=== PATIENT | female | born 1960 ===

== ENCOUNTER 2025-04-17 09:43 | Inpatient (IN) | payer OTHER, SELFPAY ==
--- NOTE | 2025-04-17 | ECG_ITS ---
Test Reason : chest tigtness Blood Pressure : */* mmHG Vent. Rate : 71 BPM Atrial Rate : 71 BPM P-R Int : 160 ms QRS Dur : 68 ms QT Int : 424 ms P-R-T Axes : 39 46 43 degrees QTcB Int : 460 ms Normal sinus rhythm Normal ECG No previous ECGs available Referred By: Generic ED Physician Electronically Signed By: LÁZARO BALDWIN MD
--- NOTE | ~2025-04-17 | CT_ITS ---
EXAMINATION: CT HEAD WITHOUT IV CONTRAST STROKE HISTORY: HTN, L sided facial numbness. TECHNIQUE: Unenhanced helical CT of the head was performed per standard departmental protocol. Coronal and sagittal reformats of the head were also evaluated. One or more of the following techniques was used for dose reduction: Automated exposure control, adjustment of the mA and/or kV according to patient size, use of iterative reconstruction technique. DLP: 641 mGy-cm COMPARISON: There are no prior studies available for comparison. FINDINGS: BRAIN: The brain parenchyma is unremarkable. There is normal simms/white differentiation. The ventricular system is normal in size and configuration. There is no mass effect or midline shift. No intra- or extra-axial fluid collections are identified. SINUSES: The visualized paranasal sinuses are clear. The mastoid air cells and middle ear cavities are well pneumatized. ORBITS: The visualized orbits are unremarkable. BONES/SOFT TISSUES: The extracranial soft tissues are unremarkable. The calvarium is intact. No suspicious lytic or sclerotic lesions. CT/CT head for STROKE IMPRESSION: Unremarkable unenhanced head CT. Findings were discussed with Dr. Zamarripa in the emergency room on 04/17/2025 at 10:20 AM. Electronically signed by: Edmund Meadows MD 04/17/2025 10:20 AM EDT
--- NOTE | ~2025-04-17 | MR_ITS ---
EXAMINATION: MR BRAIN WITHOUT CONTRAST CLINICAL INFORMATION: Left-sided facial numbness, TIA versus CVA. COMPARISON: No prior MRI. Head CT dated earlier same day. TECHNIQUE: MRI of the brain was obtained using routine sequences without contrast. Examination performed on a 1.5 Daysi Siemens high-field unit. FINDINGS: There is no diffusion restriction. There is no intracranial hemorrhage, acute infarction, mass effect, or edema. Ventricles, sulci, and cisterns are normal in size and configuration for patient age. No shift of midline. No abnormal hemosiderin deposition is identified. There are scattered punctate and minimally confluent foci of white matter T2 hyperintensity in the periventricular, subcortical, and hemispheric deep white matter. These foci are nonspecific but statistically most likely relate to mild small vessel ischemic changes. Midline structures appear normally formed. There is a partial empty sella. Posterior fossa structures appear normal. Cerebellar tonsils are appropriately located. Major flow voids are preserved within the skull base. The globes and orbital contents demonstrate no abnormalities. There is no significant paranasal sinus disease. The mastoids and tympanic cavities are normally aerated. Extracranial soft tissues demonstrate no abnormalities. No suspicious bone marrow changes are evident. Mild to moderate degenerative changes noted in the left TM joint. Atlantoaxial joint is normal. MR/MR head/brain wo con IMPRESSION: 1. No evidence of intracranial hemorrhage, acute infarction, mass effect, or edema. 2. Mild scattered T2 hyperintense white matter foci, statistically most likely relating to small vessel ischemic changes. Although not entirely excluded, no distribution or morphology suggestive of demyelinating disease. Electronically signed by: Micah Calvert MD 04/17/2025 03:46 PM EDT
--- NOTE | ~2025-04-17 | FL_ITS ---
EXAMINATION: XR LUMBAR PUNCTURE CLINICAL INFORMATION: left facial numbness COMPARISON: None. TECHNIQUE: Following explaining fluoroscopy-guided lumbar puncture procedure, benefits and risk, a written consent was obtained. Patient was placed prone on fluoroscopy table and an optimal site was selected along the skin at the L4-5 disc level and markers placed. The marked area was cleaned and draped in usual sterile manner with 2% chlorhexidine solution. A 20-gauge spinal needle was inserted from the marked site intrathecally at the L4-5 disc level. After removing the stylet and observing CSF return, CSF was collected in 4 test tubes. Postprocedure stylet was reintroduced and needle removed. Complete hemostasis achieved at puncture site. Simple Band-Aid applied postprocedure. Patient tolerated procedure extremely well. FINDINGS: On single lateral image there is a loss of L5-S1 disc height. The L4-5 disc height and the L4-L5 vertebral heights are maintained normal. Approximately 12.5 mL of clear CSF fluid was collected in 4 test tubes and sent to lab. The CSF appears clear. FLUOROSCOPY TIME: 31 seconds DOSE AREA PRODUCT: 740.2 uGy-m2 (microgray-meter squared) FL/FL guided lumbar puncture LP IMPRESSION: Successful fluoroscopy-guided lumbar puncture performed at L4-5 disc level. Electronically signed by: Jayden Collins MD 04/18/2025 01:34 PM EDT
[2025-04-17 09:50] VITALS: BP 185/94; PULSE 75; RESP 18; TEMP 37; O2SAT 100; BMI 21.2
--- NOTE | 2025-04-17 09:56 | PC.NURSE ---
MD Zamarripa made aware of pt and symtptoms, at this time pt requested to be brougth back for exam and to determine further care
--- NOTE | 2025-04-17 10:16 | ED.NEUROSD ---
HPI - Neuro Symptoms/Deficit General Chief Complaint: Neuro Symptoms/Deficit Stated Complaint: Chest tightness, facial tingling, high/low bp Time Seen by Provider: 04/17/25 09:55 Source: patient and old records reviewed Mode of arrival: ambulatory Limitations: no limitations History of Present Illness ED Provider: JOON HPI Narrative: 65 yo female with PMH of HTN just started on new BP medication two days ago lisinopril 2.5mg, HLD, not on thinners or aspirin who notes around 730am she was driving to work and felt her L face was heavy and tingling. She also had a R sided headache. Initially her BP was low in the 90s then it went up to 180s. She notes she still has a funny feeling on the L side of the face. She has no weakness and never saw a facial droop. She has no hx of stroke Onset (ago): hour(s) (730am today) Last Observed Normal: 07:30 Location: left face History of same: No Severity: mild Quality: tingling Relieving factors: none Exacerbating factors: none Context: sudden onset On Anticoagulants: No Associated symptoms: headaches Treatments Prior to Arrival: none Related Data Allergies Allergy/AdvReac Type Severity Reaction Status Date / Time iodine AdvReac Itching Verified 04/17/25 09:51 latex AdvReac Itching Verified 04/17/25 09:51 IV dye Allergy Mild Hives Uncoded 04/17/25 10:05 Review of Systems Review of Systems: Constitutional : No Fever, No Chills, No Fatigue Cardiovascular : No Chest Pain, No SOB, No Dyspnea on Exertion Respiratory : No Cough, No Sputum Gastrointestinal : No Nausea, No Vomiting, No Diarrhea, No abdominal Pain Genitourinary : No Dysuria, No Urinary Frequency, No Hematuria, Musculoskeletal : No joint pain, No Myalgias, No Joint Swelling Skin : No Skin Lesions, No rash Neuro : No Weakness, pos Numbness, No Dizziness, positive Headache All other systems reviewed and are negative [facility] Past Medical History Attestation statement: The following information was validated with the patient. Source: old records reviewed Medical History (Updated 04/17/25 @ 11:00 by Roselia Zamarripa DO) HLD (hyperlipidemia) HTN (hypertension) Social History Social History (Updated 04/17/25 @ 10:22 by Roselia Zamarripa DO) Patient Tobacco Use Status: Never used Tobacco Advance Directives: No Advance Directives Information Provided: Yes Physical Exam Vital Signs: Vital Signs: Last Vital Signs Temp 98.6 F 04/17/25 09:50 Pulse 75 04/17/25 09:50 Resp 18 04/17/25 09:50 BP 185/94 H 04/17/25 09:50 Pulse Ox 100 04/17/25 09:50 O2 Del Method Room Air 04/17/25 09:50 BMI result Body Mass Index 21.2 Appearance: Alert. Oriented X3. No acute distress. Eyes: Pupils equal, round and reactive to light. ENT: Pharynx normal. Neck: Normal inspection. Neck supple. CVS: Normal heart rate and rhythm. Pulses normal. Respiratory: No respiratory distress. Breath sounds normal. Abdomen: Soft and nontender. Skin: Skin warm and dry. Normal skin color. Normal skin turgor. Extremities: No lower extremity edema. No calf ttp Neuro: Oriented X 3. No motor deficit. No sensory deficit. CN2-12 intact Medications Administered Discontinued Medications Generic Name Dose Route Start Last Admin Trade Name Freq PRN Reason Stop Dose Admin Aspirin 81 mg 04/17/25 10:50 04/17/25 11:42 Aspirin 81 Mg Tab.Chew PO 04/17/25 10:51 81 mg ONCE ONE Administration Medical Decision Making Medical Decision Making [facility] Narrative: 65 yo female with PMH of HTN just started on new BP medication two days ago lisinopril 2.5mg, HLD, not on thinners or aspirin here with isolated L sided facial tingling though she can feel my hand to light touch at this time I am going to obtain labs, EKG, CT head for stroke. She has prior allergy to IV dye so CTA held though clinically very low susp for LVO. Given mild symptoms and non debilitating NIH she is not a candidate for TNK. Differential Diagnosis Differential Diagnoses: The differential diagnosis associated with the presentation includes TIA, stroke, HTN urgency Admission/Observation Consideration of admission/observation: Escalation of care including admission/observation considered given symptoms and risk factors would admit for further workup Consult Healthcare Provider Management of the patient was discussed with: Hospitalist (will admit) Lab Data [facility] Lab Attestation statement: I reviewed the patient's lab results. 04/17/25 10:17 04/17/25 10:17 Labs: Lab Results 04/17/25 Range/Units 10:17 WBC 4.4 L (4.8-10.8) X10*3/uL RBC 4.08 L (4.20-5.50) X10*6/uL Hgb 12.4 (12.0-16.0) g/dl Hct 35.9 L (37.0-47.0) % MCV 88.0 (80.0-98.0) fL MCH 30.4 (27.0-33.0) pg MCHC 34.5 (31.0-35.0) g/dl RDW 11.3 (11.0-16.0) % Plt Count 218 (160-400) X10*3/uL MPV 10.2 (9.4-12.3) fL Immature Gran % (Auto) 0.5 H (0.0-0.4) % Neut % (Auto) 68.3 (45-73) % Lymph % (Auto) 20.4 (20-40) % Glades % (Auto) 7.6 (2-11) % Eos % (Auto) 2.1 (0-4) % Baso % (Auto) 1.1 (0-2) % Lymph # (Auto) 0.9 L (1.2-4.9) X10*3/uL [place] # (Auto) 0.3 (0.1-1.2) X10*3/uL Eos # (Auto) 0.1 (0.0-0.4) X10*3/uL Baso # (Auto) 0.1 (0.0-0.2) X10*3/uL Abs Immat Gran (auto) 0.02 (0.00-0.03) X10*3/uL Absolute Neuts (auto) 3.0 (2.0-8.3) x10*3/uL Absolute Nucleated RBC 0.000 (0.0-0.012) X10*3/uL Nucleated RBC % (auto) 0.0 (0.0-0.2) /100WBC Sodium 140 (135-145) mmol/L Potassium 4.0 (3.3-5.1) mmol/L Chloride 110 H (96-108) mmol/L Carbon Dioxide 24 (22-29) mmol/L Anion Gap 10 L (12-20) BUN 19 H (9-16) mg/dL Creatinine 0.85 (0.5-1.4) mg/dL Estim Creat Clear Calc 63.4 Estimated GFR > 60 Random Glucose 95 (60-115) mg/dL Estimat Average Glucose 103 mg/dL Hemoglobin A1c % 5.2 (<6.0) % Calcium 8.9 (8.4-10.2) mg/dL Magnesium 2.3 (1.6-2.6) mg/dL Total Bilirubin 0.3 (0.0-1.0) mg/dL Direct Bilirubin 0.1 (0.0-0.5) mg/dL AST 32 H (5-31) U/L ALT 18 (0-31) U/L Alkaline Phosphatase 79 (39-117) U/L Troponin I High Sens < 2.7 (<3.5-17.0) ng/L Total Protein 7.4 (6.5-8.0) g/dL Albumin 4.7 (3.5-5.0) g/dL Triglycerides 214 H (<150) mg/dL Cholesterol 350 H (<200) mg/dL LDL Cholesterol, Calc 252 H (<100) mg/dL HDL Cholesterol 56 (>40) mg/dL Lipase 42 (8-78) U/L Independent Interpretation I performed an independent interpretation of an: EKG and CT Scan (negative) Interpretation: Rate: 71 Rhythm: NSR Clover: normal Normal P waves. Normal JADON. Normal QRS complex. ST T wave : inverted t wave V1, no MIGUEL qTC: 460 prior studies: no acute ischemia The study has been interpreted contemporaneously by me. . Radiology Impression Discussion of test interpretation with radiology: I discussed test interpretation with the radiologist and I have reviewed the radiologist's reading. NIH Stroke Scale Internal: Initial- Upon Arrival Level of Consciousness: Alert Level of Consciousness Questions: Answers both questions correctly Level of Consciousness Commands: Performs both tasks correctly Best Gaze: Normal Visual: No visual loss Facial Palsy: Normal Motor Arm (Right): No drift Motor Arm (Left): No drift Motor Leg (Right): No drift Motor Leg (Left): No drift Limb Ataxia: Absent Sensory: Mild to moderate sensory loss Best Language: No aphasia Dysarthia: Normal Extinction and Inattention: No abnormality Score: 1 Discharge Plan Discharge Clinical Impression: Paresthesia HTN (hypertension) Qualifiers: Hypertension type: unspecified Qualified Code(s): I10 - Essential (primary) hypertension Patient Disposition: Admitted As Inpatient
[2025-04-17 10:23] LABS: MANUAL DIFF FLAG NO
[2025-04-17 10:24] LABS: Hematocrit 35.9 % (37.0-47.0); Hemoglobin 12.4 g/dl (12.0-16.0); Imm Gran Abs Auto 0.02 X10*3/uL (0.00-0.03); Imm Gran Pct Auto 0.5 % (0.0-0.4); Lymphocytes Absolute Auto 0.9 X10*3/uL (1.2-4.9); Mean Corpuscular HGB Conc 34.5 g/dl (31.0-35.0); Mean Corpuscular Hemoglobin 30.4 pg (27.0-33.0); Mean Corpuscular Volume 88.0 fL (80.0-98.0); NRBC Abs Auto 0.000 X10*3/uL (0.0-0.012); NRBC Pct Auto 0.0 /100WBC (0.0-0.2); Platelet Count 218 X10*3/uL (160-400); Red Blood Count 4.08 X10*6/uL (4.20-5.50); White Blood Count 4.4 X10*3/uL (4.8-10.8)
[2025-04-17 10:40] LABS: Alanine Aminotransferase 18 U/L (0-31); Albumin Level 4.7 g/dL (3.5-5.0); Alkaline Phosphatase 79 U/L (39-117); Anion Gap 10 (12-20); Aspartate Amino Transferase 32 U/L (5-31); Blood Urea Nitrogen 19 mg/dL (9-16); Calcium 8.9 mg/dL (8.4-10.2); Carbon Dioxide 24 mmol/L (22-29); Chloride 110 mmol/L (96-108); Cholesterol 350 mg/dL (<200); Creatinine Clr Calc Pharmacy 63.4; Estimated Glomerular Filt Rate > 60; HDL Cholesterol 56 mg/dL (>40); Lipase 42 U/L (8-78); Magnesium 2.3 mg/dL (1.6-2.6); Potassium 4.0 mmol/L (3.3-5.1); Sodium 140 mmol/L (135-145); Total Protein 7.4 g/dL (6.5-8.0); Triglycerides 214 mg/dL (<150)
[2025-04-17 10:48] LABS: Troponin-I High Sensitivity < 2.7 ng/L (<3.5-17.0)
[2025-04-17 10:56] LABS: Hemoglobin A1C 108.8380 umol/L; Total Hemoglobin (HGBA1C) 3245.0049 umol/L
--- NOTE | 2025-04-17 11:49 | PC.NURSE ---
MRI form filled out by this RN and sent to clinical laboratory technologist at this time
[2025-04-17 12:11] VITALS: BP 152/100; PULSE 68; RESP 14; O2SAT 100
--- NOTE | 2025-04-17 12:36 | P.HPHOSP_ITS ---
History of Present Illness Date of Service: 04/17/25 Chief Complaint: left face numbness 65F PMH HTN, adhd presented with left facial numbness. Patient woke up on morning of admission without any symptoms. At about 07:30 she was driving and noticed left facial numbness most pronounced in V2 region associated with some facial weakness. denies other motor or sensory deficits. denies previous symptoms. in ED noted to be hypertensive - 185/94, CTH negative. Review of Systems 2 Review of Systems: Yes all other systems are reviewed and are negative [facility], [facility] Medical History HLD (hyperlipidemia) HTN (hypertension) Social History Patient Tobacco Use Status: Never used Tobacco Advance Directives: No Advance Directives Information Provided: Yes Meds Allergies Allergy/AdvReac Type Severity Reaction Status Date / Time iodine AdvReac Itching Verified 04/17/25 09:51 latex AdvReac Itching Verified 04/17/25 09:51 IV dye Allergy Mild Hives Uncoded 04/17/25 10:05 Active Medications: Current Medications Aspirin (Aspirin Enteric Coated 81 Mg Tablet.Dr) 81 mg PO DAILY SHALINI Atorvastatin Calcium (Atorvastatin Calcium 80 Mg Tablet) 80 mg PO BEDTIME SHALINI Clopidogrel Bisulfate (Clopidogrel Bisulfate 75 Mg Tablet) 75 mg PO DAILY SHALINI Enoxaparin Sodium (Enoxaparin Sodium 40 Mg/0.4 Ml Syringe) 40 mg SUBCUT Q24H SHALINI Physical Exam 2 Vital Signs and Narrative: Vital Signs: Last Vital Signs Temp 98.6 F 04/17/25 09:50 Pulse 68 04/17/25 12:11 Resp 14 04/17/25 12:11 BP 152/100 H 04/17/25 12:11 Pulse Ox 100 04/17/25 12:11 O2 Del Method Room Air 04/17/25 12:11 BMI result Body Mass Index 21.2 General: AO X 3, no acute distress Resp: CTA bilateral, no accessory muscles used CVS: S1,S2,RRR GI: soft, non tender, non distended Neuro: right tongue deviation, left facial numbness, alert Psych: appropriate affect, appropriate insight Results Labs 04/17/25 10:17 04/17/25 10:17 Labs: Laboratory Results - last 24 hr 04/17/25 10:17 MCV 88.0 MCH 30.4 MCHC 34.5 RDW 11.3 Plt Count 218 MPV 10.2 Immature Gran % (Auto) 0.5 H Neut % (Auto) 68.3 Lymph % (Auto) 20.4 [place]aines % (Auto) 7.6 Eos % (Auto) 2.1 Baso % (Auto) 1.1 Lymph # (Auto) 0.9 L [place] # (Auto) 0.3 Eos # (Auto) 0.1 Baso # (Auto) 0.1 Abs Immat Gran (auto) 0.02 Absolute Neuts (auto) 3.0 Absolute Nucleated RBC 0.000 Nucleated RBC % (auto) 0.0 Anion Gap 10 L Estim Creat Clear Calc 63.4 Estimated GFR > 60 Random Glucose 95 Estimat Average Glucose 103 Hemoglobin A1c % 5.2 Calcium 8.9 Magnesium 2.3 Total Bilirubin 0.3 Direct Bilirubin 0.1 AST 32 H ALT 18 Alkaline Phosphatase 79 Troponin I High Sens < 2.7 Total Protein 7.4 Albumin 4.7 Triglycerides 214 H Cholesterol 350 H LDL Cholesterol, Calc 252 H HDL Cholesterol 56 Lipase 42 Imaging Radiologist's Impressions: Impressions Head CT 04/17/25 10:05 IMPRESSION: Unremarkable unenhanced head CT. Findings were discussed with Dr. Zamarripa in the emergency room on 04/17/2025 at 10:20 AM. Electronically signed by: Edmund Meadows MD 04/17/2025 10:20 AM EDT RP Assessment and Plan (1) Paresthesia: Status: Acute Plan 65F PMH HTN, adhd presented with left facial numbness Left facial numbness Rule out TIA/CVA MRI brain, aspirin, Plavix, statin Neuro eval No evidence of dysphagia or speech abnormality, no need for PT OT Hyperlipidemia Statin Uncontrolled hypertension Permissive hypertension for now DVT prophylaxis with Lovenox Full code Given ongoing and progressing neuro deficits at high-risk due to hypertension and hyperlipidemia expected require 2 midnights inpatient for workup for possible stroke Quality Stroke Does the patient have a stroke diagnosis?: Yes Reason for No Anti-thrombotic by Day Two: N/A - Med Ordered VTE Prior VTE?: No VTE Risk Level:: Medical - moderate - high VTE Device Contraindication: Treatment Not Indicated VTE Drug Contraindication: N/A - Med Ordered
[2025-04-17 12:50] LABS: Appearance Urine Clear; Glucose Urine UA Negative (Negative); PH 8.5 (5.0-9.0); Specific Gravity - Urine <= 1.005 (1.005-1.025)
--- NOTE | 2025-04-17 13:23 | PHA.MEDREC ---
Addendum entered by Cesar Caruso [facility] 04/17/25 18:34: Reviewed by [facility] Addendum entered by Neida Schafer 04/17/25 18:23: Got list from [facility] and spoke with pt again to confirm Premarin Cream once a week; pt confirmed she takes it Sundays, Pt takes Strattera 18mg 1 BID; [facility] 2 caps AM and 1 cap PM, pt takes Methylphenidate 5mg tabs 1 TID; [facility] it [facility] 1 QID, pt confirmed her Estradiol Patch and she switches [employer]; pt took patch off today and pt takes Vitamin D3 1000un tab once daily that she gets OTC; not indicated [facility]. Addendum entered by Paola Still 04/17/25 15:01: Spoke to Patient again to confirm Strattara. Patient reports Strattara is 18 mg. Patient states she fills lisinopril and Starttra from [facility]. Waiting on list from [facility] to confirm Will have nite time med rec team follow up. Original Note: Pharmacy Consult ? Medication Reconciliation Pharmacy has completed the medication reconciliation.Spoke to patient to confirm med list. Patient states she takes Lisinopril 2.5 mg and Strarrera 16 mg from [facility] [phone] however [facility] has no history of patient filling these medications. [facility] could only confirm Estradiol 0.05mg twice a week (patient changes Sundays and Wednesdays) and Progesterone 100 mg. didn't add Strattera because it doesn't com in 16 mg. Will notify the provider.
--- NOTE | 2025-04-17 14:14 | MHC.STROKE ---
Notified of patient in ED Patient awake, alert and oriented x 4. Reports at approx 0730 a heaviness or tingling to left side of face. Reporting that her tongue doesn't feel normal . Pt states that for the past month her blood pressure has been elevated and she was started on lisinopril approx 2 days ago. No focal deficits/weakness noted. NIH 1 per provider documentation Stroke Education reviewed with patient. Pamphlet provided All questions answered. Patient Medical history reviewed along with medications, social history, diet, and activity. Pt denies smoking, etoh. Plan is for admission and MRI. MRI form completed and faxed. Pt aware of plan - no questions at this time
--- NOTE | 2025-04-17 16:28 | PM.NEUROCN ---
History of Present Illness Data of Consult Service Date: 04/17/25 Primary Care Provider: Unknown Physician HPI Reason for consult: Left facial numbness and right facial weakness This is a 65-year-old right-handed woman with a history of hypertension that has been untreated until 3 days ago when she started lisinopril. She was driving to work earlier today and noted some left-sided numbness in the cheek area which then spread to both side of the upper lip and then she started noticing that her face was twisted to 1 side with some right-sided facial weakness. Her initial blood pressure was low and then little later it was in the 180s and so she decided to come in to the emergency room. Initial blood pressure was elevated. She has had an negative CAT scan and MRI that shows fairly extensive nonspecific white matter hyperintense lesions both subcortical and deep white matter in both hemispheres but not involving the brainstem. No evidence of acute infarct. [facility] Past Medical History Medical History HLD (hyperlipidemia) HTN (hypertension) Social History Social History Patient Tobacco Use Status: Never used Tobacco Advance Directives: No Advance Directives Information Provided: Yes Meds Allergies Allergy/AdvReac Type Severity Reaction Status Date / Time iodine AdvReac Itching Verified 04/17/25 09:51 latex AdvReac Itching Verified 04/17/25 09:51 IV dye Allergy Mild Hives Uncoded 04/17/25 10:05 Active Medications: Current Medications Acetaminophen (Acetaminophen 325 Mg Tablet) 650 mg PO Q6H PRN PRN Reason: Pain, Mild 1-3,fever,headache Aspirin (Aspirin Enteric Coated 81 Mg Tablet.Dr) 81 mg PO DAILY SHALINI Atorvastatin Calcium (Atorvastatin Calcium 80 Mg Tablet) 80 mg PO BEDTIME SHALINI Calcium Carbonate (Calcium Carbonate 750 Mg Tab.Chew) 750 mg PO Q4H PRN PRN Reason: Heartburn Clopidogrel Bisulfate (Clopidogrel Bisulfate 75 Mg Tablet) 75 mg PO DAILY SHALINI Enoxaparin Sodium (Enoxaparin Sodium 40 Mg/0.4 Ml Syringe) 40 mg SUBCUT Q24H SHALINI Magnesium Hydroxide (Milk Of Magnesia 30 Ml Oral.Susp) 30 ml PO DAILY PRN PRN Reason: Constipation Melatonin (Melatonin 3 Mg Tablet) 6 mg PO BEDTIME PRN PRN Reason: Insomnia Sodium Chloride (0.9 % Sodium Chloride Flush 3 Ml Syringe) 3 ml IVFLUSH QSHIFT SHALINI Home Medications ?Medication ?Instructions ?Recorded ?Confirmed ?Last Taken ?Type cholecalciferol (vitamin D3) 25 25 mcg PO DAILY 04/17/25 04/17/25 04/17/25 History mcg (1,000 unit) tablet (Vitamin D3) estradiol 0.05 mg/24 hr semiweekly 1 patch transdermal SUWE 04/17/25 04/17/25 04/14/25 History transdermal patch lisinopril 2.5 mg tablet 2.5 mg PO DAILY 04/17/25 04/17/25 04/17/25 History progesterone micronized 100 mg 100 mg PO BEDTIME 04/17/25 04/17/25 04/16/25 History capsule Physical Exam Vital Signs: Vital Signs: Last Vital Signs Temp 98.6 F 04/17/25 09:50 Pulse 68 04/17/25 12:11 Resp 14 04/17/25 12:11 BP 152/100 H 04/17/25 12:11 Pulse Ox 100 04/17/25 12:11 O2 Del Method Room Air 04/17/25 12:11 BMI result Body Mass Index 21.2 Neuro: Other: She has mild right peripheral facial weakness. Remainder of the neurological examination is entirely normal. Results Labs 04/17/25 10:17 04/17/25 10:17 Labs: Short CBC 04/17/25 Range/Units 10:17 WBC 4.4 L (4.8-10.8) X10*3/uL Hgb 12.4 (12.0-16.0) g/dl Hct 35.9 L (37.0-47.0) % Plt Count 218 (160-400) X10*3/uL BMP 04/17/25 10:17 Sodium 140 Potassium 4.0 Chloride 110 H Carbon Dioxide 24 BUN 19 H Creatinine 0.85 Calcium 8.9 Liver Function 04/17/25 Range/Units 10:17 Total Bilirubin 0.3 (0.0-1.0) mg/dL Direct Bilirubin 0.1 (0.0-0.5) mg/dL AST 32 H (5-31) U/L ALT 18 (0-31) U/L Alkaline Phosphatase 79 (39-117) U/L Albumin 4.7 (3.5-5.0) g/dL Urine 04/17/25 Range/Units 12:43 Urine Color Yellow Urine Appearance Clear Urine pH 8.5 (5.0-9.0) Ur Specific [place] <= 1.005 (1.005-1.025) Urine Protein Negative (Neg-Trace) mg/dL Urine Glucose (UA) Negative (Negative) mg/dL Assessment and Plan (1) 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 Recommendation: Start prednisone 60 mg a day with a tapering dose over a week to 10 days. Add acyclovir or valacyclovir for 10 days (2) White matter abnormality on MRI of brain: Status: Acute I have personally reviewed the MRI films. There are fairly extensive white matter hyperintensities on FLAIR and T2 in the subcortical deep white matter and some periventricular distribution. These are nonspecific including related to untreated hypertension causing microvascular disease although they seem quite extensive., Lyme disease or demyelinating disorder Recommendation: Lyme titers. Check for autoimmune disorders. Spinal fluid analysis for routine and MS studies including oligoclonal bands and myelin basic proteins and immunoelectrophoresis. Procedures Date of Service Date of Service: 04/17/25
[2025-04-17 17:09] VITALS: BP 162/67; PULSE 65; RESP 20; TEMP 37.1; O2SAT 99
--- NOTE | 2025-04-17 19:11 | HO.NURTONUR ---
Shi is a 65F full code who presented to the ED stating she had a left sided facial droop and left sided facial weakness when she was driving into work. patient upon arrival no noted facial droop, had ct scan that was negative of the head. patient passed swallow exam, was started on po aspirin. patient recently started on lisinopril by her pcp, noted to be hypertensive on ED arrival. patient is alert and oriented x3 with a standby assist. patient has #20 in the LAC. MRI showed increased lesions on brain unknown if related to lyme / demylenating disorder. patient has csf collection ordered and lyme titer.
[2025-04-17 20:18] VITALS: BMI 21.8
[2025-04-17 20:35] VITALS: BP 136/68; PULSE 73; RESP 19; TEMP 36.9; O2SAT 96
[2025-04-17 23:30] VITALS: BP 160/100; PULSE 61; RESP 17; TEMP 36.8; O2SAT 93
[2025-04-18 00:30] VITALS: BP 162/66
[2025-04-18 03:35] VITALS: BP 160/88; PULSE 63; RESP 18; TEMP 36.6; O2SAT 99
[2025-04-18 07:05] LABS: Hematocrit 37.4 % (37.0-47.0); Hemoglobin 12.6 g/dl (12.0-16.0); Mean Corpuscular HGB Conc 33.7 g/dl (31.0-35.0); Mean Corpuscular Hemoglobin 29.8 pg (27.0-33.0); Mean Corpuscular Volume 88.4 fL (80.0-98.0); NRBC Abs Auto 0.000 X10*3/uL (0.0-0.012); NRBC Pct Auto 0.0 /100WBC (0.0-0.2); Platelet Count 230 X10*3/uL (160-400); Red Blood Count 4.23 X10*6/uL (4.20-5.50); White Blood Count 4.7 X10*3/uL (4.8-10.8)
[2025-04-18 07:27] VITALS: BP 148/98; PULSE 71; RESP 20; TEMP 37.2; O2SAT 99
[2025-04-18 07:51] LABS: Anion Gap 11 (12-20); Blood Urea Nitrogen 11 mg/dL (9-16); Calcium 8.9 mg/dL (8.4-10.2); Carbon Dioxide 24 mmol/L (22-29); Chloride 111 mmol/L (96-108); Creatinine Clr Calc Pharmacy 70.0; Estimated Glomerular Filt Rate > 60; Potassium 4.1 mmol/L (3.3-5.1); Sodium 142 mmol/L (135-145)
--- NOTE | 2025-04-18 08:42 | MHC.CM.PN ---
CM met with Patient and her Son at bedside. Patient lives in a house with a Friend/Deborah and she required no services nor DME HAND PRESSER. Patient may benefit from a PT Eval to assist with disposition;CM has initiated and will follow for dc planning. PCP is Dr. Linda Lewis and Son will transport to home at dc.
--- NOTE | 2025-04-18 09:54 | P.PNIM_ITS ---
Subjective Subjective Date of Service: 04/18/25 Interval History: developed right facial weakness Physical Exam 2 Exam: Exam: right facial weakness upper and lower consistent with bells palsy decreased sensation to left face, bilateral hands Vital Signs: Vital Signs: Last Vital Signs Temp 98.9 F 04/18/25 07:27 Pulse 71 04/18/25 07:27 Resp 20 04/18/25 07:27 BP 148/98 H 04/18/25 07:27 Pulse Ox 99 04/18/25 07:27 O2 Del Method Room Air 04/18/25 07:27 BMI result Body Mass Index 21.8 Objective Data Active Medications Acetaminophen (Acetaminophen 325 Mg Tablet) 650 mg PO Q6H PRN PRN Reason: Pain, Mild 1-3,fever,headache Aspirin (Aspirin Enteric Coated 81 Mg Tablet.Dr) 81 mg PO DAILY [facility] Atorvastatin Calcium (Atorvastatin Calcium 80 Mg Tablet) 80 mg PO BEDTIME [facility] Last Admin: 04/17/25 22:16 Dose: Not Given Documented By: SUKHJINDER Non-Admin Reason: refused-wants to review in AM w/ Calcium Carbonate (Calcium Carbonate 750 Mg Tab.Chew) 750 mg PO Q4H PRN PRN Reason: Heartburn Clopidogrel Bisulfate (Clopidogrel Bisulfate 75 Mg Tablet) 75 mg PO DAILY [facility] Lisinopril (Lisinopril 2.5 Mg Tablet) 2.5 mg PO DAILY [facility]; Protocol Last Admin: 04/18/25 08:45 Dose: 2.5 mg Documented By: ALICJA Magnesium Hydroxide (Milk Of Magnesia 30 Ml Oral.Susp) 30 ml PO DAILY PRN PRN Reason: Constipation Melatonin (Melatonin 3 Mg Tablet) 6 mg PO BEDTIME PRN PRN Reason: Insomnia Methylphenidate HCl (Methylphenidate Hcl 5 Mg Tablet) 5 mg PO TID [facility] Non-Formulary Medication (Atomoxetine) 18 mg PO BID [facility] Prednisone (Prednisone 20 Mg Tablet) 60 mg PO DAILY [facility] Progesterone (Progesterone, Micronized 100 Mg Capsule) 100 mg PO BEDTIME [facility] Last Admin: 04/17/25 21:55 Dose: 100 mg Documented By: SUKHJINDER Sodium Chloride (0.9 % Sodium Chloride Flush 3 Ml Syringe) 3 ml IVFLUSH QSHIFT [facility] Last Admin: 04/18/25 03:01 Dose: Not Given Documented By: SUKHJINDER Non-Admin Reason: Patient Asleep Valacyclovir HCl (Valacyclovir Hcl 1,000 Mg Tablet) 1,000 mg PO Q12H [facility] Vitamin D (Cholecalciferol (Vitamin D3) 25 Mcg Tablet) 25 mcg PO DAILY [facility] Last Admin: 04/18/25 08:45 Dose: 25 mcg Documented By: ALICJA Labs 04/18/25 06:33 04/18/25 06:33 Labs: Laboratory Results - last 24 hr 04/17/25 04/17/25 04/18/25 10:17 12:43 06:33 MCV 88.0 88.4 MCH 30.4 29.8 MCHC 34.5 33.7 RDW 11.3 11.1 Plt Count 218 230 MPV 10.2 10.1 Immature Gran % (Auto) 0.5 H Neut % (Auto) 68.3 Lymph % (Auto) 20.4 Barton % (Auto) 7.6 Eos % (Auto) 2.1 Baso % (Auto) 1.1 Lymph # (Auto) 0.9 L Barton # (Auto) 0.3 Eos # (Auto) 0.1 Baso # (Auto) 0.1 Abs Immat Gran (auto) 0.02 Absolute Neuts (auto) 3.0 Absolute Nucleated RBC 0.000 0.000 Nucleated RBC % (auto) 0.0 0.0 Anion Gap 10 L 11 L Estim Creat Clear Calc 63.4 70.0 Estimated GFR > 60 > 60 Random Glucose 95 98 Estimat Average Glucose 103 Hemoglobin A1c % 5.2 Calcium 8.9 8.9 Magnesium 2.3 Total Bilirubin 0.3 Direct Bilirubin 0.1 AST 32 H ALT 18 Alkaline Phosphatase 79 Troponin I High Sens < 2.7 Total Protein 7.4 Albumin 4.7 Triglycerides 214 H Cholesterol 350 H LDL Cholesterol, Calc 252 H HDL Cholesterol 56 Lipase 42 Urine Color Yellow Urine Appearance Clear Urine pH 8.5 Ur Specific [place] <= 1.005 Urine Protein Negative Urine Glucose (UA) Negative Urine Ketones Negative Urine Blood Negative Urine Nitrite Negative Ur Leukocyte Esterase Negative Assessment and Plan (1) Foster's palsy: Status: Acute Plan 65F PMH HTN, adhd presented with left facial numbness, now developed right sided bells palsy Left facial numbness and right bells palsy Ruled out TIA/CVA MRI brain with some concern for demyelinating disease check LP will dc asa follow up lyme, walter starting prednisone and valcyclovir Hyperlipidemia started Statin Uncontrolled hypertension improving, continue lisinopril DVT prophylaxis with Lovenox Full code reason for continued hospitalization:lp pending Quality Stroke Does the patient have a stroke diagnosis?: No VTE Prior VTE?: No VTE Risk Level:: Medical - moderate - high VTE Device Contraindication: Treatment Not Indicated VTE Drug Contraindication: N/A - Med Ordered
[2025-04-18 12:00] VITALS: BP 165/82; PULSE 68; RESP 16; TEMP 37.3; O2SAT 97
[2025-04-18 13:37] LABS: Lymphocytes CSF 88 %; Red Blood Cell CSF 1 MM*3; White Blood Cell CSF 2 MM*3
--- NOTE | 2025-04-18 13:38 | MHC.CM.PN ---
PT is recommending outpatient PT.
[2025-04-18 16:00] VITALS: BP 144/91; PULSE 84; RESP 20; TEMP 37.2; O2SAT 96
[2025-04-18 20:00] VITALS: BP 137/84; PULSE 77; RESP 19; TEMP 36.3; O2SAT 97
[2025-04-19] VITALS: BP 123/69; PULSE 69; RESP 16; TEMP 36.9; O2SAT 97
[2025-04-19 02:59] VITALS: BP 180/90; PULSE 69; RESP 17; TEMP 36.6; O2SAT 99
[2025-04-19 05:38] LABS: Lyme Abs Screen <0.90 index
[2025-04-19 06:55] LABS: Oligoclonal Serum Yes
[2025-04-19 08:00] VITALS: BP 165/94; PULSE 68; RESP 17; TEMP 36.9; O2SAT 98
[2025-04-19] MEDS: 0.9 % Sodium Chloride Flush 3 ML SYRINGE IVFLUSH (09:07)
--- NOTE | 2025-04-19 10:53 | PM.DS ---
DS: Providers Provider Date of Service: 04/19/25 Date of admission: 04/17/25 11:28 Date of discharge: 04/19/25 Primary care physician: Linda Herndon Consults: 04/17/25 11:29 Consult to Neurology Routine Consulting Provider: [facility] Reason for consultation: Persistent left sided facial numbness, TIA vs CVA DS: Diagnosis Discharge Diagnosis (1) Foster's palsy: Status: Acute DS: Summary Hospital Course Hospital Course: from initial hpi: 65F PMH HTN, adhd presented with left facial numbness. Patient woke up on morning of admission without any symptoms. At about 07:30 [address] and noticed left facial numbness most pronounced in V2 region associated with some facial weakness. denies other motor or sensory deficits. denies previous symptoms. in ED noted to be hypertensive - 185/94, CTH negative. hospital course: Patient was initially admitted for left facial numbness to rule out CVA/TIA. This was ruled out. However, patient then developed right-sided Foster's palsy. MRI of the brain showed extensive white matter disease disproportion. Was seen by Neurology who felt differential includes uncontrolled hypertension but recommended workup to rule out demyelinating disease. Lyme was ruled out, results of CSF were still pending and should follow up outpatient. Was started on prednisone taper and valacyclovir for Foster's palsy. For hyperlipidemia patient is intolerant of statins and is recommended to follow up with PCP to set up PCSK9 inhibitor, for uncontrolled hypertension was continued on lisinopril and amlodipine 10 mg daily was added. Patient is medically stable and will be discharged home. Time Attestation Discharge Coordination Time (in mins): 36 Quality: Safe Use of Opioids Does Pt have an Active Cancer Diagnosis on the Problem List?: No Quality: Stroke Does the patient have a stroke diagnosis?: No Physical Exam Exam: Exam: right facial weakness upper and lower consistent with bells palsy decreased sensation to left face, bilateral hands Vital Signs: Vital Signs: Last Vital Signs Temp 98.4 F 04/19/25 08:00 Pulse 68 04/19/25 08:00 Resp 17 04/19/25 08:00 BP 165/94 H 04/19/25 08:00 Pulse Ox 98 04/19/25 08:00 O2 Del Method Room Air 04/19/25 08:00 BMI result Body Mass Index 21.8 DS: Data Data Completed and Pending Labs on day of discharge: Laboratory Results - last 24 hr 04/18/25 04/18/25 04/18/25 06:33 11:30 11:30 CSF Tube Number 1 4 CSF Volume 2.0 CSF Appearance CLEAR CSF Color COLORLESS CSF WBC 2 CSF RBC 1 CSF Lymphocytes 88 CSF Monocytes % 13 CSF Appearance (b) Clear, Colorless CSF Glucose 58 CSF Total Protein 41.7 Lyme Screen IgG & IgM <0.90 Lyme Progressive Test TNP Preliminary micro results at discharge 04/18/25 11:30 CSF Culture - Preliminary Cerebrospinal Fluid No growth after 1 day Discharge Plan Discharge Anticipated Discharge Date/Time: 04/19/25 10:47 Patient Disposition: Home, Self-Care Discharge Diagnosis: bells, htn, white matter disease Referrals: Linda Bee [Other] - 1 Week [facility] [Outside, Neurology] - 1 Week Referral Note: white matter disease, predominantly right sided bells palsy but with left sided parasthesias Discharge Medications: New valacyclovir 1 gram Tablet 1,000 mg PO Q12H 8 Days Qty: 16 0RF amlodipine 10 mg Tablet 10 mg PO DAILY 90 Days Qty: 90 0RF Protocol: Hold for SBP< HOLD for SBP < : 90 prednisone 20 mg tablet 40 mg PO DAILY Qty: 12 0RF Rx Instructions: 40mg daily for 4 days, then 20mg daily for 4 days Continued estradiol 0.05 mg/24 hr Patch Semiweekly 1 patch TRANSDERMAL SUWE Rx Instructions: apply 1 patch for 3 days alternating with 1 patch for 4 days each week for 3 wks per 4-wk cycle lisinopril 2.5 mg Tablet 2.5 mg PO DAILY progesterone micronized 100 mg Capsule 100 mg PO BEDTIME Rx Instructions: off 7 days; repeat cycle cholecalciferol (vitamin D3) [Vitamin D3] 25 mcg (1,000 unit) Tablet 25 mcg PO DAILY methylphenidate HCl 5 mg Tablet 5 mg PO TID Premarin 0.625 mg/gram Cream 0.625 mg vaginal LEWIS atomoxetine 18 mg Capsule 18 mg PO BID Discharge Orders: Discharge Order (Routine); Ordered 04/19/25 Ordered By: Nate Gillespie Diet: Low salt diet Activity on Discharge: As tolerated Stand Alone Forms: Patient Portal Discharge page Print Language: Japanese Care Plan Goals: Recovery Health Concerns: Foster's palsy, white matter disease, hypertension, hyperlipidemia Plan of Treatment: Foster's palsy - continue prednisone taper, valacyclovir, can follow up with Neurology, keep right eye taped shut to protect the cornea especially at night White matter disease - follow up results from lumbar puncture, follow up with Neurology Hypertension - continue lisinopril, added amlodipine, consider coming off ADHD meds as they can contribute, low-salt diet Hyperlipidemia - if unable to tolerate statin consider PCSK9 inhibitor Assessment: see above
--- NOTE | 2025-04-19 11:10 | MHC.CM.PN ---
Addendum entered by Linda Espitia RN 04/19/25 13:14: PT WILL BE PROVIDED W/SCRIPT FOR WALKER Original Note: PT MEDICALLY CLEARED FOR DC HOME SELF CARE W/FOLLOW-UP W/PCP FOR OUPT PT, FAMILY FOR TRANSPORT
[2025-04-19 11:38] VITALS: BP 166/85; PULSE 75; RESP 18; TEMP 37.2; O2SAT 99
--- NOTE | 2025-04-19 14:39 | MHC.CM.PN ---
Patient reports she will be scheduling an appt w/ [facility]. She requested that dc summary be faxed to [phone]. Faxed as requested. She is aware this is not a formal referral and will follow up w/ her PCP for referral needs.
== END 2025-04-19 14:35 | disposition home or self-care (01) | DRG 74 ==
LOC: HO.ED 11:00 → HO.EDOVER 11:36 → HO.IMC 19:18
PROVIDERS: Admitting Provider Student in an Organized Health Care Education/Training Program; Emergency Provider Emergency Medicine; Visit Provider Internal Medicine
DX: G51.0 Bell's palsy (principal); I10 Essential (primary) hypertension; R90.82 White matter disease, unspecified; E78.5 Hyperlipidemia, unspecified; Z79.899 Other long term (current) drug therapy
CPT/HCPCS: 36415; 62328; 70450; 70551; 80048; 80061; 80076; 81003; 82945; 83036; 83690; 83735; 83873; 83916; 84157; 84166; 84484; 85025; 85027; 86038; 86617; 86618; 87015; 87070; 87205; 89051; 93005; 97161; 97165; 99284

== ENCOUNTER → 2025-04-17 09:47 | Outpatient (BNV) | payer OTHER, SELFPAY | PROVIDERS: Admitting Provider Student in an Organized Health Care Education/Training Program; Emergency Provider Emergency Medicine; Visit Provider Internal Medicine Cardiovascular Disease | DX: R07.9 Chest pain, unspecified (principal) | CPT/HCPCS: 93010 ==

== ENCOUNTER → 2025-04-17 10:01 | Outpatient (BNV) | payer OTHER, SELFPAY | PROVIDERS: Emergency Provider Emergency Medicine; Visit Provider Radiology Diagnostic Radiology | DX: R20.0 Anesthesia of skin (principal); R90.82 White matter disease, unspecified; I10 Essential (primary) hypertension | CPT/HCPCS: 70450; 70551 ==

== ENCOUNTER 2025-04-17 11:28 | Outpatient (BNV) | payer OTHER, SELFPAY | END 2025-04-18 11:00 | PROVIDERS: Admitting Provider Student in an Organized Health Care Education/Training Program; Emergency Provider Emergency Medicine; Visit Provider Radiology Diagnostic Radiology | DX: R20.0 Anesthesia of skin (principal) | CPT/HCPCS: 62328 ==

== ENCOUNTER → 2025-04-17 11:28 | Outpatient (BNV) | payer OTHER, SELFPAY | PROVIDERS: Admitting Provider Student in an Organized Health Care Education/Training Program; Emergency Provider Emergency Medicine; Visit Provider Psychiatry & Neurology Neurology | DX: G51.0 Bell's palsy (principal); R90.82 White matter disease, unspecified | CPT/HCPCS: 99223 ==

== ENCOUNTER → 2025-04-17 11:28 | Outpatient (BNV) | payer OTHER, SELFPAY | PROVIDERS: Admitting Provider Student in an Organized Health Care Education/Training Program; Emergency Provider Emergency Medicine; Visit Provider Internal Medicine | DX: R20.2 Paresthesia of skin (principal) | CPT/HCPCS: 99223 ==